=== PATIENT | female | born 1975 | race Caucasian/White ===

== ENCOUNTER 2020-03-10 05:46 | Outpatient (RCR) | payer BC ==
[~2020-03-10] VITALS: Ht 167 cm; Wt 127.0 kg
[~2020-03-10 05:46] MED LIST: AC325T PO; ACDPT PO; ASP81TEC PO; CETI10TA17 PO; EZET10TA5 PO; ISM30TCR PO; LORA10TA7 PO; MMT17NA NS; MTP25TSR PO; NAPR220C PO; OMEP20CA12 PO; OMG1KC PO; SIMV40TA2 PO
[2020-03-10] MEDS ORDERED: OMEP40CA27 PO (15:19)
[2020-03-10] MEDS ORDERED: EZET10TA17 PO (15:19)
[2020-03-10] MEDS ORDERED: ASPI-999 PO (15:19)
[2020-03-10] MEDS ORDERED: MULT-1136 PO (15:19)
[2020-03-10] MEDS ORDERED: LORA10TA76 PO (15:19)
== END 2020-03-10 16:00 | disposition home or self-care (01) ==
LOC: PREOP 05:46 → EDSTATUS 09:30 → PREOP 16:00
PROVIDERS: ATTEND Surgery
DX: Z01.818 Encounter for other preprocedural examination (principal)

== ENCOUNTER 2020-03-18 09:42 | Day surgery (SDC) | payer BC ==
[2020-03-18] VITALS (15 sets, daily range): BP systolic 110–146; BP diastolic 57–91
[~2020-03-18] VITALS: Ht 167 cm; Wt 127.0 kg
[~2020-03-18 09:42] MED LIST changes: +ASPI-999 PO; +EZET10TA17 PO; +LORA10TA76 PO; +MULT-1136 PO; +OMEP40CA27 PO
[2020-03-18] MEDS ORDERED: NS IV 500 ML 500 ML IV PRN (09:48)
--- NOTE | 2020-03-18 09:57 | Conscious Sedation/ASA ---
Conscious Sedation Pre-Proced Time 09:55 ASA Score 2 For ASA 3 and 4: Consider anesthesia and medical clearance. Also, for patients with a history of failed moderate sedation consider anesthesia. Airway Lungs Heart ASA score ASA 1: a normal healthy patient ASA 2: a patient with a mild systemic disease (mid diabetes, controlled hypertension, obesity ASA 3: a patient with a severe systemic disease that limits activity (angina, COPD, prior Myocardial infarction) ASA 4: a patient with an incapacitating disease that is a constant threat to life (CHF, renal failure) ASA 5: a moribund patient not expected to survive 24 hrs. (ruptured aneurysm) ASA 6: a declared brain- patient whose organs are being harvested. For emergent operations, add the letter E after the classification Mallampati Classification Grade 2 Sedation Plan Analgesia, Amnesia, Plan communicated to team members, Discussed options with patient/fam, Discussed risks with patient/fam The patient is an appropriate candidate to undergo the planned procedure, sedation, and anesthesia. The patient immediately re-assessed prior to indication. MARY RIVERA MD Mar 18, 2020 09:57
[2020-03-18] MEDS ORDERED: NS IV 500 ML 500 ML ONE (09:58)
--- NOTE | 2020-03-18 09:58 | Progress Note-Pre Operative ---
Pre-Operative Progress Note H&P Reviewed The H&P was reviewed, patient examined and no changes noted. Date Seen by Provider: Mar 18, 2020 Time Seen by Provider: 09:55 Date H&P Reviewed: Mar 18, 2020 Time H&P Reviewed: 09:55 Pre-Operative Diagnosis: screening MARY Chamberlain MD Mar 18, 2020 09:58
[2020-03-18] MEDS ORDERED: MIDAZOLAM 5 MG/5 ML (VERSED) VIAL IV ONE (10:00)
[2020-03-18] MEDS ORDERED: ONDANSETRON 4 MG/2 ML (SDV) Z0FRAN IVP PRN (10:00)
[2020-03-18] MEDS ORDERED: HURRICAINE EXT TUBE (BENZOCAINE) XX PRN (10:00)
[2020-03-18] MEDS ORDERED: ACETAMINOPHEN 325 MG TABLET PO PRN (10:00)
[2020-03-18] MEDS ORDERED: LIDOCAINE JELLY 2% 6 ML SYRINGE MM PRN (10:00)
[2020-03-18] MEDS ORDERED: fentaNYL INJECTION 100 MCG/2 ML AMP IVP ONE (10:00)
[2020-03-18] MEDS ORDERED: morphine INJ 10 MG/ML 1ML (SYR OR VIAL) IVP PRN ×2 (10:00)
[2020-03-18] MEDS ORDERED: HYDROcodone/APAP 5 MG/325 MG (LORTAB) TAB PO PRN (10:00)
--- NOTE | 2020-03-18 10:00 | Discharge Inst-Surgical ---
D/C Lap Instructions-MIGUEL Follow Up Appt in 2 weeks Activity as tolerated High Fiber Diet 25g or more per day Avoid Alcohol, Caffeine, Spicy [place] and Acid foods. Drink 64 fluid oz or more of fluids per day. Symptoms to Report: Fever over 101 degree F, Nausea/Vomiting If any problems/questions: Contact your physician or go to Emergency Room MARY RIVERA MD Mar 18, 2020 10:00
[2020-03-18] MEDS ORDERED: LIDOCAINE JELLY 2% 6 ML SYRINGE ONE (11:02)
[2020-03-18] MEDS ORDERED: MIDAZOLAM 5 MG/5 ML (VERSED) VIAL ONE ×2 (11:02→11:26)
[2020-03-18] MEDS ORDERED: fentaNYL INJECTION 100 MCG/2 ML AMP ONE (11:02)
[2020-03-18] MEDS ORDERED: HURRICAINE EXT TUBE (BENZOCAINE) ONE (11:02)
--- NOTE | 2020-03-18 13:16 | Progress Note-Post Operative ---
Post-Operative Progess Note Surgeon (s)/Sleeve Machine Tender (s) Surgeon MARY RIVERA MD Sleeve Machine Tender: none Pre-Operative Diagnosis screening colo Post-Operative Diagnosis reflux esophagitis(stage 2), moderate HH(4cm), moderate gastritis. Procedure & Operative Findings Date of Procedure 03/18/20 Procedure Performed/Findings EGD with bx. Anesthesia Type cs Estimated Blood Loss Estimated blood loss (mL): minimal Specimens/Packing Specimens Removed ge jxn, antrum MARY RIVERA MD Mar 18, 2020 13:16
--- NOTE | 2020-03-18 21:31 | OPERATIVE REPORT ---
DATE OF SERVICE: 03/18/2020 ATTENDING PRIMARY CARE PHYSICIAN: Dr. Lorena Londono. PREOPERATIVE DIAGNOSIS: Gastroesophageal reflux disease. POSTOPERATIVE DIAGNOSES: Reflux esophagitis stage II, moderate size hiatal hernia approximately 3 to 4 cm in size, moderate severity gastritis. PROCEDURE: EGD with biopsy. SURGEON: Mary Rivera MD. ANESTHESIA: Conscious sedation. ESTIMATED BLOOD LOSS: Minimal. FINDINGS: Reflux esophagitis stage II, moderate size hiatal hernia approximately 3 to 4 cm in size, moderate severity gastritis. DISPOSITION: The patient tolerated the procedure well. INDICATIONS: The patient is a 45-year-old female referred over to us for persistent gastroesophageal reflux disease. She states that she has had this for many years and has been on different acid reducers. She states that she is on omeprazole 40 mg b.i.d. at this time, which has controlled her symptoms. She does not report any hematemesis, no coffee ground emesis. DESCRIPTION OF PROCEDURE: The patient was brought to the endoscopy suite, laid in the left lateral decubitus position. After adequate IV pain and stated medications and conscious sedation anesthesia, the mouthpiece was applied. The endoscope was placed in the mouth, visualizing the pharynx and hypopharyngeal region. Vocal cords, epiglottis and vallecula identified and appeared to be normal. The endoscope was then gently abated esophageal opening and esophagus insufflated. The endoscope was then advanced to the first, second, third portions of esophagus above the GE junction, reflux esophagitis stage II identified. There were no ulcers or strictures identified in this region. The GE junction was also intrathoracic consistent with a hiatal hernia. A biopsy was taken of the GE junction with forceps with visualization of good hemostasis. The endoscope was then advanced through the pylorus and the first and second portion of the duodenum, which appeared normal with no distal obstructions. The endoscope was then slowly withdrawn while taking a second look and suctioning of residual air with no additional findings. The endoscope was then advanced into the stomach and the endoscope retroflexed, visualizing a moderate size hiatal hernia, 3 to 4 cm in size. There was a moderate severity gastritis more towards the stomach antrum. No formal ulcerations, polyps, or any neoplasms. A biopsy was taken of the antrum to rule out H. pylori with visualization of good hemostasis. The patient tolerated the procedure well. We will recommend the necessary lifestyle and diet accommodation including small and more frequent meals, avoidance of eating at night as well as head elevation while lying supine. She also needs to avoid caffeinated beverages, spicy, greasy and acidic foods and proceed with any form of regularly scheduled diet and exercise regimen for weight loss and maintenance. Job ID: [id number] DocumentID: [id number] Dictated Date: 03/18/2020 11:39:51 Prescriptionist Date: 03/18/2020 21:29:59 Dictated By: MARY RIVERA MD
== END 2020-03-18 12:35 | disposition home or self-care (01) ==
LOC: ENDO 09:42
PROVIDERS: ATTEND Surgery
DX: K21.00 Gastro-esophageal reflux disease with esophagitis, without bleeding (principal); K29.50 Unspecified chronic gastritis without bleeding; K44.9 Diaphragmatic hernia without obstruction or gangrene; E78.00 Pure hypercholesterolemia, unspecified; Z79.82 Long term (current) use of aspirin; Z79.899 Other long term (current) drug therapy; Z88.2 Allergy status to sulfonamides; Z88.8 Allergy status to other drugs, medicaments and biological substances; Z83.3 Family history of diabetes mellitus; Z82.49 Family history of ischemic heart disease and other diseases of the circulatory system
CPT/HCPCS: 84703; 88305